=== PATIENT | female | born 1990 | race Caucasian/White ===

== ENCOUNTER 2020-09-15 10:41 | Outpatient (CLI) | payer OTHER | END 2020-09-15 10:42 | disposition home or self-care (01) | LOC: BICULT 10:41 | PROVIDERS: ATTEND Nurse Practitioner | DX: Z34.93 Encounter for supervision of normal pregnancy, unspecified, third trimester (principal); Z3A.28 28 weeks gestation of pregnancy | CPT/HCPCS: 76805 ==

== ENCOUNTER 2020-11-17 08:17 | Outpatient (CLI) | payer OTHER | END 2020-11-17 08:18 | disposition home or self-care (01) | LOC: ULT 08:17 | PROVIDERS: ATTEND Family Medicine | DX: O12.03 Gestational edema, third trimester (principal) ==

== ENCOUNTER 2022-08-23 07:13 | Emergency (ER) | payer OTHER, SELFPAY ==
[2022-08-23] MEDS ORDERED: Lidocaine Viscous Sol 2% 15 ml UD Cup ONE (08:11)
[2022-08-23] MEDS ORDERED: Dicyclomine 20 MG/2 ML VIAL ONE (08:11)
[2022-08-23] MEDS ORDERED: Pantoprazole 40 MG VIAL ONE (08:11)
[2022-08-23] MEDS ORDERED: Mag-Al 1200 mg/1200 mg/30 ML UDCUP ONE (08:11)
[2022-08-23] MEDS ORDERED: Ondansetron PF 4 MG/2 ML Vial ONE (08:11)
[2022-08-23 08:51] LABS: #Basophils 0.1 thou/uL (0.0-0.2); #Eosinphils 0.1 thou/uL (0.0-0.7); #Lymphocytes 1.5 thou/uL (1.20-3.40); #Monocytes 0.4 thou/uL (0.11-0.59); #Neutrophils 7.6 thou/uL (1.40-6.50); %Basophils 0.7 % (0.0-1.0); %Eosinophils 0.8 % (0.0-10.0); %Lymphocytes 15.9 % (21.0-51.0); %Monocytes 4.6 % (0.0-10.0); Hemoglobin 14.3 g/dL (12.0-16.0); Mean Corpuscular HGB CONC 33.8 g/dL (32.0-36.0); Mean Corpuscular Hemoglobin 34.9 pg (27.0-31.0); Mean Platelet Volume 9.3 fL (7.4-10.4); Platelet Count 152 10x3/uL (130-400); RBC Distribution Width 12.2 % (11.5-14.5); White Blood Cell (WBC) Count 9.7 10x3/uL (4.8-10.8)
[2022-08-23 09:05] LABS: INR-International Normal Ratio 0.9; PTT 23.5 sec (22.9-36.1); Prothrombin Time 12.7 sec (12.0-14.7)
[2022-08-23 09:12] LABS: BHCG - Serum Negative (NEGATIVE); Pregs Control Background? CLEAR/WHITE (CLR/WHITE); Pregs Control Bar Appear? YES (CONTROL BAR)
[2022-08-23 09:21] LABS: ALT (SGPT) 28 U/L (8-55); Albumin 3.9 g/dL (3.5-5.0); Alkaline Phosphatase 56 U/L (40-110); BUN (Urea Nitrogen) 6 mg/dL (7.0-18.7); Bilirubin, Total 0.3 mg/dL (0.2-1.2); Calc. Creatinine Clearance 0 mL/min (70-130); Calcium 8.9 mg/dL (7.8-10.44); Carbon Dioxide 24 mmol/L (22-29); Chloride 105 mmol/L (98-107); Estimated GFR 91; Glucose 83 mg/dL (70-105); Lipase 23 U/L (8-78); Sodium 140 mmol/L (136-145)
[2022-08-23 09:32] LABS: AST (SGOT) 40 U/L (5-34); Globulin 2.9 g/dL (2.4-3.5); Potassium 4.1 mmol/L (3.5-5.1); Protein, Total 6.8 g/dL (6.0-8.3)
[2022-08-23 09:32] LABS: Bilirubin Negative (Negative); Blood, Urine Negative (Negative); Clarity Clear (Clear); Glucose, Urine (Dipstick) Normal (Negative); Ketone, Urine Negative (Negative); Leukocyte Negative Leu/uL (Negative); Nitrite Negative (Negative); Protein, Urine (Dipstick) 10 mg/dL (Neg-Trace); Specific Gravity, Urine 1.021 (1.002-1.036); Urobilinogen Normal mg/dL (Less than 2)
[2022-08-23 09:33] LABS: Anion Gap 15 mmol/L (10-20)
[2022-08-23] MEDS ORDERED: Iopamidol 370 76% 100 ML VIAL ONE (10:29)
[2022-08-23] MEDS ORDERED: Ketorolac Tromethamine 30 MG/ML VIAL ONE (11:32)
[2022-08-23 15:45] LABS: Chlamydia by PCR, EndoCx Swab Not Detected (NotDetected); GC by PCR, EndoCx Swab Not Detected (NotDetected)
== END 2022-08-23 12:30 | disposition home or self-care (01) ==
LOC: ERS 07:13
DX: R10.819 Abdominal tenderness, unspecified site (principal); K92.0 Hematemesis
CPT/HCPCS: 74177; 76856; 80053; 81003; 83690; 84703; 85025; 85610; 85730; 87480; 87491; 87510; 87591; 87660; 93976; 94760; 96365; 96366; 96372; 96375; C9113; J1885; J2405; Q9967